=== PATIENT | female | born 1995 | race Caucasian/White ===

== ENCOUNTER 2018-05-22 11:37 | Emergency (ER) | payer OTHER ==
[~2018-05-22] VITALS: Ht 148 cm; Wt 59.7 kg
[2018-05-22 11:51] VITALS: BP 108/61; TEMP 98.2
[2018-05-22 14:01] VITALS: PULSE 71
== END 2018-05-22 14:02 | disposition home or self-care (01) ==
LOC: COL.ER 11:37
DX: S93.602A Unspecified sprain of left foot, initial encounter (principal); W17.89XA Other fall from one level to another, initial encounter; Y92.219 Unspecified school as the place of occurrence of the external cause

== ENCOUNTER 2019-03-22 03:23 | Emergency (ER) | payer OTHER ==
[~2019-03-22] VITALS: Ht 148 cm; Wt 63.0 kg
[2019-03-22 03:29] VITALS: BP 120/63; PULSE 102; TEMP 97.8
[2019-03-22 03:47] LABS: COLLECTION METHOD CLEAN CATCH
[2019-03-22 03:53] LABS: MUCOUS Present /lpf; PH 6 (5-8); URINE APPEARANCE Hazy; URINE BACTERIA None Seen /hpf; URINE BILIRUBIN Negative (NEGATIVE); URINE BLOOD 2+ (NEGATIVE); URINE COLOR Yellow; URINE GLUCOSE Negative (NEGATIVE); URINE KETONE Negative (NEGATIVE); URINE LEUKOCYTE ESTERASE Negative (NEGATIVE); URINE NITRATE Negative (NEGATIVE); URINE PROTEIN(semi-quant) Negative (NEGATIVE); URINE RBC 20-50 /hpf; URINE UROBILINOGEN Negative (NEGATIVE)
[2019-03-22] MEDS ORDERED: CEFTIN500 MG PO (04:30)
[2019-03-22] MEDS ORDERED: PYRIDIUM200 M1 PO (04:30)
== END 2019-03-22 05:37 | disposition home or self-care (01) ==
LOC: COL.ER 03:23
PROVIDERS: Emergency Medicine
DX: N30.90 Cystitis, unspecified without hematuria (principal)

== ENCOUNTER 2019-04-25 00:39 | Emergency (ER) | payer OTHER ==
[~2019-04-25] VITALS: Ht 149.9 cm; Wt 65.0 kg
[~2019-04-25 00:39] MED LIST: CEFTIN500 MG PO; PYRIDIUM200 M1 PO
[2019-04-25 00:58] VITALS: BP 105/65; TEMP 98.1
[2019-04-25 02:00] VITALS: PULSE 75
== END 2019-04-25 02:00 | disposition home or self-care (01) ==
LOC: COL.ER 00:39
DX: H69.91 Unspecified Eustachian tube disorder, right ear (principal); D64.9 Anemia, unspecified; F17.210 Nicotine dependence, cigarettes, uncomplicated; W51.XXXA Accidental striking against or bumped into by another person, initial encounter

== ENCOUNTER 2019-06-09 02:10 | Emergency (ER) | payer OTHER ==
[~2019-06-09] VITALS: Wt 62.0 kg
[2019-06-09 02:25] VITALS: TEMP 98.7
[2019-06-09 02:57] LABS: COLLECTION METHOD CLEAN CATCH
[2019-06-09 03:04] LABS: BASO # 0.1 (0.0-0.2); BASO % 0.6 % (0.0-2.0); EOS # 0.2 (0.0-0.7); GRAN # 5.6 (1.4-6.5); GRAN % 57.7 % (42.2-75.2); HEMATOCRIT 37.1 % (37.0-47.0); HEMOGLOBIN 12.1 g/dl (12.5-16.0); LYMPH # 2.9 (1.2-3.4); MEAN CELL VOLUME 92 fl (80.0-100.0); MEAN CORPUSCULAR HEMOGLOBIN 30 pg (27.0-31.0); MEAN CORPUSCULAR HGB CONC 33 g/dl (33.0-37.0); MEAN PLATELET VOLUME 10.8 fl (7.4-10.4); MONO # 0.9 (0.1-0.6); MONO % 9.5 % (1.7-9.3); PLATELET COUNT 286 K/mm3 (130-400); RED BLOOD COUNT 4.03 M/mm3 (4.10-5.30); REDCELL DISTRIBUTION WIDTH-CV 13.2 % (11.5-14.5)
[2019-06-09 03:08] LABS: MUCOUS Present /lpf; PH 5 (5-8); URINE APPEARANCE Cloudy; URINE BACTERIA None Seen /hpf; URINE BILIRUBIN Negative (NEGATIVE); URINE BLOOD Negative (NEGATIVE); URINE COLOR Amber; URINE GLUCOSE Negative (NEGATIVE); URINE KETONE 1+ (NEGATIVE); URINE LEUKOCYTE ESTERASE Negative (NEGATIVE); URINE NITRATE Negative (NEGATIVE); URINE PROTEIN(semi-quant) Negative (NEGATIVE); URINE RBC 0-2 /hpf; URINE UROBILINOGEN Negative (NEGATIVE)
[2019-06-09 03:12] LABS: ALANINE AMINOTRANSFERASE 44 U/L (9-52); ALBUMIN 4.3 gm/dL (3.5-5.0); ALKALINE PHOSPHATASE 62 U/L (50-136); ANION GAP 9 mmol/L (7-16); AST,SGOT 37 U/L (15-37); BILIRUBIN,TOTAL 1.1 mg/dL (0.0-1.0); BLOOD UREA NITROGEN 12 mg/dL (7-17); C-REACTIVE PROTEIN < 0.5 mg/dL (0.0-0.9); CALCIUM 9.6 mg/dL (8.4-10.2); CARBON DIOXIDE 26 mmol/L (22-30); CHLORIDE 103 mmol/L (98-107); CREATININE, serum 0.72 (0.52-1.25); GLUCOSE 84 mg/dL (74-106); LIPASE 96 U/L (23-300); POTASSIUM 3.8 mmol/L (3.4-5.0); SODIUM 137 mmol/L (137-145); TOTAL PROTEIN 7.6 gm/dL (6.4-8.2)
[2019-06-09] MEDS ORDERED: AMOXICILLIN 8751 TAB PO (03:25)
[2019-06-09 04:04] VITALS: BP 120/81; PULSE 74
== END 2019-06-09 04:04 | disposition home or self-care (01) ==
LOC: COL.ER 02:10
PROVIDERS: Emergency Medicine
DX: R59.1 Generalized enlarged lymph nodes (principal)

== ENCOUNTER 2019-11-01 15:15 | Emergency (ER) | payer OTHER ==
[~2019-11-01] VITALS: Ht 152.4 cm; Wt 58.0 kg
[~2019-11-01 15:15] MED LIST changes: +AMOXICILLIN 8751 TAB PO
[2019-11-01 15:21] VITALS: BP 122/73; PULSE 76; TEMP 98
[2019-11-01] MEDS ORDERED: MULTI VITAMINS1 TAB PO (15:30)
== END 2019-11-01 17:06 | disposition home or self-care (01) ==
LOC: COL.ER 15:15
DX: R07.89 Other chest pain (principal); R00.2 Palpitations; Z87.891 Personal history of nicotine dependence

== ENCOUNTER 2020-07-14 01:42 | Emergency (ER) | payer OTHER ==
[~2020-07-14] VITALS: Ht 150 cm; Wt 62.0 kg
[~2020-07-14 01:42] MED LIST changes: +MULTI VITAMINS1 TAB PO
[2020-07-14 01:48] VITALS: TEMP 97.8
[2020-07-14 02:03] LABS: COLLECTION METHOD CLEAN CATCH
[2020-07-14 02:15] LABS: AMORPHOUS CRYSTAL Present /uL; PH 7 (5-8); SQUAMOUS EPITHELIAL 0-2 /hpf; URINE APPEARANCE Cloudy; URINE BACTERIA None Seen /hpf; URINE BILIRUBIN Negative (NEGATIVE); URINE BLOOD Negative (NEGATIVE); URINE GLUCOSE Negative (NEGATIVE); URINE KETONE Negative (NEGATIVE); URINE LEUKOCYTE ESTERASE Negative (NEGATIVE); URINE NITRATE Negative (NEGATIVE); URINE PROTEIN(semi-quant) Negative (NEGATIVE); URINE RBC 0-2 /hpf; URINE UROBILINOGEN >=4.0 mg/dL (NEGATIVE)
[2020-07-14 02:16] LABS: URINE COLOR Yellow
[2020-07-14] MEDS ORDERED: MACROBID 1100 MG/CAP PO (03:02)
[2020-07-14 03:53] VITALS: BP 118/71; PULSE 89
== END 2020-07-14 03:53 | disposition home or self-care (01) ==
LOC: COL.ER 01:42
PROVIDERS: Nurse Practitioner
DX: R39.15 Urgency of urination (principal); F17.290 Nicotine dependence, other tobacco product, uncomplicated